=== PATIENT | female | born 1975 | race Caucasian/White ===

== ENCOUNTER → 2017-07-13 | Outpatient (CLI) | payer OTHER ==
[~2017-07-13] VITALS: Ht 160 cm; Wt 83.0 kg
[~2017-07-13] MED LIST: BENZOCAINE 20% ORAL SPR 60 ML CAN OROPHARYNG ONE; LIDOCAINE HCL 2% 100 MG/5 ML SYRINGE OTHER ONE; PANT40TA3 PO; SPRI28TA PO; Z.0.NO CURRENT MEDS
[2017-07-13 08:12] VITALS: BP 122/85; PULSE 78; RESP 14; TEMP 98; O2SAT 100
== END ==
LOC: HSDC 07:07
PROVIDERS: ATTEND Internal Medicine Gastroenterology
DX: K44.9 Diaphragmatic hernia without obstruction or gangrene (principal)
CPT/HCPCS: 91010

== ENCOUNTER 2017-09-19 08:29 | Inpatient (IN) | payer OTHER ==
[~2017-09-19] VITALS: Ht 160 cm; Wt 83.3 kg
[~2017-09-19 08:29] MED LIST changes: -BENZOCAINE 20% ORAL SPR 60 ML CAN OROPHARYNG ONE; -LIDOCAINE HCL 2% 100 MG/5 ML SYRINGE OTHER ONE; -Z.0.NO CURRENT MEDS
[2017-09-19] MEDS ORDERED: CHLORHEXIDINE GLUCONATE 2 % 1 PACK (2 CLOTHS) TOPICAL PRN (09:15)
[2017-09-19] MEDS ORDERED: LACTATED RINGER'S 1000 ML IV PRN (09:15)
[2017-09-19] MEDS ORDERED: ACETAMINOPHEN 1000 MG/100 ML 100 ML IV SCH (09:15)
[2017-09-19] MEDS ORDERED: ceFAZolin 2 GM PREMIX 50 ML IV SCH (09:15)
[2017-09-19] MEDS ORDERED: SODIUM CHLORID 0.9% 500 ML IV PRN (09:15)
[2017-09-19] MEDS ORDERED: POVIDONE IODINE 5% (ANTISEPSIS KIT) 4 APPLICATIONS EACH NARE PRN (09:15)
[2017-09-19] MEDS ORDERED: ONDANSETRON HCL 4 MG/2 ML VIAL IV PUSH SCH (09:15)
[2017-09-19] MEDS ORDERED: METOPROLOL TARTRATE 25 MG TAB PO PRN (09:15)
[2017-09-19] MEDS ORDERED: APREPITANT 40 MG CAP ONE (09:23)
[2017-09-19] MEDS ORDERED: APREPITANT 40 MG CAP PO SCH (10:00)
[2017-09-19] MEDS ORDERED: LIDOCAINE HCL 1% PF 5 ML SYRINGE OTHER ONE (12:00)
[2017-09-19] MEDS ORDERED: VECURONIUM BROMIDE 20 MG VIAL IV ONE (12:00)
[2017-09-19] MEDS ORDERED: DEXAMETHASONE SOD PHOS 4 MG/ML VIAL IV ONE (12:00)
[2017-09-19] MEDS ORDERED: PROPOFOL 200 MG/20 ML AMP IV ONE (12:00)
[2017-09-19] MEDS ORDERED: ROCURONIUM INJ 50 MG/5 ML SYRINGE IV PUSH ONE (12:00)
[2017-09-19] MEDS ORDERED: ePHEDrine/NS 25 MG/5 ML SYRINGE IV ONE (12:00)
[2017-09-19] MEDS ORDERED: ONDANSETRON HCL 4 MG/2 ML VIAL IV ONE (12:00)
[2017-09-19] MEDS ORDERED: LACTATED RINGER'S 1000 ML INJ 1,000 ML IV ONE (12:00)
[2017-09-19] MEDS ORDERED: STERILE WATER FOR INJECTION 20 ML VIAL IV ONE (12:00)
[2017-09-19] MEDS ORDERED: ceFAZolin INJ 1,000 MG VIAL IV ONE (12:00)
[2017-09-19] MEDS ORDERED: ARTIFICIAL TEARS OPTH OINT 3.5 APPLIC/3.5 GM TUBO ONE (15:22)
[2017-09-19] MEDS ORDERED: ceFAZolin INJ 1,000 MG VIAL ONE (15:22)
[2017-09-19] MEDS ORDERED: SUGAMMADEX SODIUM 200 MG/2 ML VIAL IV PUSH ONE (15:22)
[2017-09-19] MEDS ORDERED: FAMOTIDINE 20 MG/2 ML VIAL ONE (15:23)
[2017-09-19] MEDS ORDERED: BUPIVACAINE/EPINEPHRINE 0.25% 50 ML VIAL ONE (15:42)
[2017-09-19] MEDS ORDERED: MIDAZOLAM HCL 2 MG/2 ML VIAL ONE (17:52)
[2017-09-19] MEDS: SODIUM CHLOR 0.9% 1000 ML INJ 1,000 ML IV SCH (18:10)
[2017-09-19] MEDS ORDERED: SODIUM CHLORIDE 0.9% FLUSH 10 ML FLUSH IV FLUSH PRN (18:15)
[2017-09-19] MEDS ORDERED: Post-op Orders (for Pharmacy) XX ONE (18:15)
[2017-09-19] MEDS ORDERED: ONDANSETRON HCL 4 MG/2 ML VIAL IV PUSH PRN (18:15)
[2017-09-19] MEDS ORDERED: ACETAMINOPHEN 325MG/HYDROcodone 7.5MG/15ML UDC PO PRN (18:15)
[2017-09-19] MEDS ORDERED: METOCLOPRAMIDE HCL 10 MG/2 ML VIAL IVS PRN (18:15)
[2017-09-19] MEDS ORDERED: MORPHINE SULFATE 4 MG/ML INJ IV PRN (18:30)
[2017-09-19] MEDS ORDERED: *morphine SULFATE 4 MG/ML PERIprocedure ONLY ONE ×3 (18:35→19:21)
[2017-09-19] MEDS ORDERED: DO NOT ADM ANY ANTICOAGULANT DRUGS PRN (19:00)
[2017-09-19] MEDS ORDERED: HYDROmorphone HCL PF 2 MG/ML VIAL ONE ×2 (19:57→20:59)
[2017-09-19] MEDS: SODIUM CHLORIDE 0.9% FLUSH 10 ML FLUSH IV FLUSH SCH (21:00)
[2017-09-20] VITALS (7 sets, daily range): BP systolic 114–131; BP diastolic 69–80; PULSE 72–85; RESP 16–18; TEMP 96.2–98.9; O2SAT 94–98
[2017-09-20] MEDS: ACETAMINOPHEN 325MG/HYDROcodone 7.5MG/15ML UDC PO PRN ×4 (00:59→16:43)
[2017-09-20] MEDS: SODIUM CHLOR 0.9% 1000 ML INJ 1,000 ML IV SCH ×2 (04:36→13:07)
[2017-09-20] MEDS: SODIUM CHLORIDE 0.9% FLUSH 10 ML FLUSH IV FLUSH SCH (09:32)
--- NOTE | 2017-09-20 12:12 | HHI.PR ---
Subjective Subjective Notes Denies nausea, vomiting or reflux Tolerating clears Objective Vitals/I&O Vital Signs Date Time Temp Pulse Resp B/P (MAP) Pulse Ox O2 Delivery O2 Flow Rate FiO2 09/20/17 08:50 98 Nasal Cannula 2.00 09/20/17 08:00 98.9 72 16 128/76 (93) Cardiovascular: Regular Lungs: Clear Abdomen: Post-op tenderness Extremities: Perfused Wound Wound : Wound Location: Abdomen Appearance: Clean & Dry A/P Assessment and Plan 42yo F POD# robot assisted laparoscopic hiatal hernia repain -D/C sanchez -Encourage frequent ambulation, needs to walk halls at least QID -Advance to full liquids -Abdominal binder for support Discharge Planning D/C home today if tolerating fluids Ahmet Banerjee Sep 20, 2017 12:12
[2017-09-20] MEDS ORDERED: ENOXAPARIN SODIUM 30 MG/0.3 ML SYRINGE SQ SCH (17:30)
--- NOTE | 2017-10-02 16:58 | MP ---
cc: Arden Peres MD DATE OF OPERATION: 09/19/2017 DATE OF OPERATION: 09/19/2017 PREOPERATIVE DIAGNOSIS: Reflux, unresponsive to medical management. POSTOPERATIVE DIAGNOSIS: Reflux, unresponsive to medical management. PROCEDURE PERFORMED: Laparoscopic repair of hiatal hernia with past partial fundoplication 270 degree posterior wrap. SURGEON: Arden Peres MD VENDOR SPECIALIST: Alden Mc MD ANESTHESIA: General endotracheal anesthesia. ESTIMATED BLOOD LOSS: Scant. FINDINGS: Moderate sized hiatal hernia, fatty liver. SPECIMENS: None. COMPLICATIONS: None. DESCRIPTION OF PROCEDURE: The patient was brought to the operating room and placed on the operating table in supine position. Bilateral sequential inflation devices placed on lower extremities. General anesthesia instituted. Mackay catheter placed. Antibiotics initiated. The abdomen was prepped and draped sterilely. A point 15 cm distal to the xiphoid in the midline anesthetized with 0.25% Marcaine with epinephrine. Skin incision was made, 5 mm Optiview port placed under direct vision and a pneumoperitoneum created. Under direct vision, a 5 mm right upper quadrant port was placed, 8 mm robotic right upper quadrant port, 8 mm robotic left upper quadrant port, 5 mm left upper quadrant port and the epigastric port was changed out to a 12 mm port. Prior to placement of all ports the skin and the peritoneum anesthetized with 0.25% Marcaine with epinephrine. The patient was placed in reverse Trendelenburg position. The cyndi flex retractor was placed and the left lobe of the liver was retracted. Next, 2-0 sutures as well as 0 silk sutures were placed into the abdominal cavity, along with a Mcloud drain and Ray-Enoc gauze. The laparoscopic tower was then removed from the patient's bedside side. The da Marek robot was brought to the bedside and docked in place. We then broke scrub and went to the console ,focusing on the epigastrium. The hepatogastric ligament was opened. The inferior aspect of the right crura of the diaphragm was dissected. The angle of His was taken down. The grasper was placed from right to the left. The Herb drain was placed around the proximal stomach. This was mobilized into the abdominal cavity. The hernia sac was then dissected circumferentially. The crura of the diaphragm was dissected circumferentially. The distal esophagus was dissected out of the mediastinum and brought into the abdominal cavity. The crura of the diaphragm was then approximated with 0 Vicryl in a [id number] manner; 2 inferior stitches were placed. The short gastric was then along the greater curvature of the stomach to the proximal third of the stomach. The stomach was then brought around the lower esophagus from left to right. A partial fundoplication was created, bringing the left side to the right, securing it to the esophagus and left crura of the diaphragm at the 11 o'clock position. Two additional stitches were placed inferiorly, securing the stomach to the esophagus and the stomach to the stomach; 2-0 silks were used for this. The right side was then brought and secured at the 1 o'clock position on the diaphragm and esophagus. Two inferior sutures were then placed from the stomach to the esophagus and the stomach to the stomach. There appeared to be at least a 4 cm segment within the abdominal cavity. At this point, the da Marek robot was then undocked, the laparoscopic tower brought back into place and the abdominal cavity was inspected. Hemostasis was present. The cyndi flex retractor was removed. All sutures, Herb and Ray-Enoc's were removed from the abdominal cavity. The fascia at the 12 mm port site approximated with 0 silk suture using a Roderick-Kevin fascial closure device. The CO2 was then released. All ports were removed. All skin incisions were closed with 4-0 Monocryl. The abdominal wall was cleaned and a sterile dressing placed. The patient was awakened and taken to the recovery room stable. All instrument and needle counts were reported as correct at the end of the procedure. MD DARINEL Adhikari/DAVY , 04:27 PM , 04:57 PM
== END 2017-09-20 18:25 | disposition home or self-care (01) | DRG 328 ==
LOC: HSDI 08:29 → N07A 23:07
PROVIDERS: ADMIT Surgery; ATTEND Surgery
PROC: 0BQT4ZZ Repair Diaphragm, Percutaneous Endoscopic Approach (ICD-10-PCS; 2017-09-19)
PROC: 8E0W4CZ Robotic Assisted Procedure of Trunk Region, Percutaneous Endoscopic Approach (ICD-10-PCS; 2017-09-19)
PROC: 0DV44ZZ Restriction of Esophagogastric Junction, Percutaneous Endoscopic Approach (ICD-10-PCS; principal; 2017-09-19 15:30)
DX: K44.9 Diaphragmatic hernia without obstruction or gangrene (principal); K76.0 Fatty (change of) liver, not elsewhere classified; K21.9 Gastro-esophageal reflux disease without esophagitis
CPT/HCPCS: 94150; J0690; J1100; J1170; J1650; J2250; J2270; J2405; J3010; J7030; J7120; J8501